=== PATIENT | female | born 1990 ===

== ENCOUNTER 2017-05-08 19:31 | Emergency (ER) | payer MEDICAID, OTHER ==
--- NOTE | 2017-05-08 20:30 | UC ---
Respiratory Complaint HPI - HPI Summary HPI Summary: 26 yo WF c/o nasal congestion, sorethroat and cough x 4 days, scant amount of sputum w/o pleurisy - History of Current Complaint Chief Complaint: UCGeneralIllness Stated Complaint: SORE THROAT/CHEST AND NASAL CONGESITON Time Seen by Provider: 05/08/17 19:55 Hx Obtained From: Patient Hx Last Menstrual Period: 04/08/17 ?: No Pain Intensity: 5 Character: Cough: Nonproductive - Allergies/Home Medications Allergies/Adverse Reactions: Allergies Allergy/AdvReac Type Severity Reaction Status Date / Time No Known Allergies Allergy Verified 05/08/17 19:48 Home Medications: Home Medications Eucalyptus/Menthol [Pina Cough Drops] 1 laxmi MT DAILY PRN 05/08/17 [History Confirmed 05/08/17] Fluticasone NASAL SPRAY 50MCG* [Flonase NASAL SPRAY 50MCG*] 1 spray BOTH NARES BID PRN 05/08/17 [History Confirmed 05/08/17] Ibuprofen TAB* [Advil TAB*] 600 mg PO Q6H PRN 05/08/17 [History Confirmed ] Melatonin 10 mg PO BEDTIME PRN 05/08/17 [History Confirmed 05/08/17] Pseudoephedrine HCL ER TAB* [Sudafed 12 Hour*] 120 mg PO DAILY PRN 05/08/17 [ History Confirmed 05/08/17] guaiFENesin ER TAB [Mucinex*] 1,200 mg PO DAILY PRN 05/08/17 [History Confirmed 05/08/17] PMH/Surg Hx/FS Hx/Imm Hx Previously Healthy: Yes - Surgical History Surgical History: None - Social History Alcohol Use: Occasionally Substance Use Type: None Smoking Status (MU): Never Smoked Tobacco Review of Systems Constitutional: Negative Skin: Negative Eyes: Negative ENT: Nasal Discharge, Sinus Congestion Respiratory: Negative Cardiovascular: Negative Gastrointestinal: Negative Genitourinary: Negative Motor: Negative Neurovascular: Negative Musculoskeletal: Negative Neurological: Negative Psychological: Negative All Other Systems Reviewed And Are Negative: Yes Physical Exam Triage Information Reviewed: Yes Vital Signs: Initial Vital Signs Temp 36.9 C 05/08/17 19:53 Pulse 70 05/08/17 19:53 Resp 16 05/08/17 19:53 BP 138/78 05/08/17 19:53 Pulse Ox 99 05/08/17 19:53 Eye Exam: Normal ENT Exam: Normal ENT: Positive: Pharyngeal erythema, Nasal congestion, Nasal drainage, TMs normal Dental Exam: Normal Neck exam: Normal Neck: Positive: 1 Respiratory Exam: Normal Cardiovascular Exam: Normal Abdominal Exam: Normal Musculoskeletal Exam: Normal Neurological Exam: Normal Psychological Exam: Normal Skin Exam: Normal UC Diagnostic Evaluation - Laboratory O2 Sat by Pulse Oximetry: 99 Respiratory Course/Dx - Course Course Of Treatment: rapid strep negative - Differential Dx/Diagnosis Provider Diagnoses: URI Discharge - Discharge Plan Condition: Stable Disposition: HOME Patient Education Materials: Upper Respiratory Infection (ED), Diphenhydramine (By mouth) Referrals: Emmanuel Schreiber MD [Primary Care Provider] - Additional Instructions: take Benadryl 2 tabs by mouth for severe nasal congestion Continue with Mucinex DM 2x/ day for cough If increase in amount or color of sputum increases or changes then return to clinic for re-evaluation
== END 2017-05-08 20:43 | disposition home or self-care (01) ==
LOC: UCCORT 19:31
DX: J06.9 Acute upper respiratory infection, unspecified (principal)
CPT/HCPCS: 87651; 99201; G0463

== ENCOUNTER 2018-11-25 20:15 | Emergency (ER) | payer OTHER ==
[2018-11-25 20:37] VITALS: BP 138/84
--- NOTE | 2018-11-25 20:41 | UC ---
Ear Complaint HPI - HPI Summary HPI Summary: Left ear ache started this am. Pain comes and goes with some burning sensation. Sick a week and a half ago. Taking mucinex, sudafed. - History of Current Complaint Chief Complaint: UCEar Stated Complaint: EAR PAIN Time Seen by Provider: 11/25/18 20:30 Hx Obtained From: Patient Hx Last Menstrual Period: 04/08/17 ?: No Onset/Duration: Sudden Onset, Lasting Days Severity Initially: Moderate Severity Currently: Moderate Pain Intensity: 4 Associated Signs/Symptoms: Positive: URI Symptoms - Allergies/Home Medications Allergies/Adverse Reactions: Allergies Allergy/AdvReac Type Severity Reaction Status Date / Time No Known Allergies Allergy Verified 11/25/18 20:37 Home Medications: Home Medications Naproxen [Naproxen 375 mg tab] 375 mg PO DAILY PRN 11/25/18 [History Confirmed 11/25/18] Norgestimate-Ethinyl Estradiol [Sprintec 28 0.25-35 mg-Mcg] 1 tab PO 11/25/18 [ History] PMH/Surg Hx/FS Hx/Imm Hx Previously Healthy: Yes - Surgical History Surgical History: None - Family History Known Family History: Positive: Hypertension - Social History Alcohol Use: Occasionally Substance Use Type: None Smoking Status (MU): Never Smoked Tobacco Review of Systems All Other Systems Reviewed And Are Negative: Yes ENT: Positive: Ear Ache, Sinus Congestion Is Patient Immunocompromised?: No Physical Exam Triage Information Reviewed: Yes Appearance: Well-Appearing, Well-Nourished, Pain Distress Vital Signs: Initial Vital Signs Temp 98.3 F 11/25/18 20:29 Pulse 84 11/25/18 20:29 Resp 18 11/25/18 20:29 BP 138/84 11/25/18 20:29 Pulse Ox 98 11/25/18 20:29 Vital Signs Reviewed: Yes Eye Exam: Normal ENT: Positive: Nasal congestion, TM bulging - bilateral Dental Exam: Normal Neck exam: Normal Respiratory Exam: Normal Cardiovascular Exam: Normal Abdominal Exam: Normal Musculoskeletal Exam: Normal Neurological Exam: Normal Psychological Exam: Normal Skin Exam: Normal Ear Complaint Course/Dx - Course Course Of Treatment: hx obtained, exam performed ,meds reviewed, treated for serous otitis of the left ear - Differential Dx/Diagnosis Differential Diagnosis/HQI/PQRI: Otitis Media, URI Provider Diagnosis: Left serous otitis media Discharge ED - Sign-Out/Discharge Documenting (check all that apply): Patient Departure All imaging exams completed and their final reports reviewed: No Studies - Discharge Plan Condition: Stable Disposition: HOME Prescriptions: Fluticasone NASAL SPRAY 50MCG* [Flonase NASAL SPRAY 50MCG*] 2 spray BOTH NARES DAILY #1 btl predniSONE [Prednisone 20 MG TAB] 40 mg PO DAILY #10 tablet Patient Education Materials: Serous Otitis Media (ED) Referrals: Emmanuel Schreiber MD [Primary Care Provider] - Additional Instructions: 1. use the prednisone to reduce the inflammation 2. Increase fluids 3. Use the flonase for the next 2 weeks 4. ibuprofen for pain. - Billing Disposition and Condition Condition: STABLE Disposition: Home
== END 2018-11-25 20:47 | disposition home or self-care (01) ==
LOC: UCCORT 20:15
DX: H65.92 Unspecified nonsuppurative otitis media, left ear (principal)
CPT/HCPCS: 99212; G0463

== ENCOUNTER 2018-11-29 08:37 | Emergency (ER) | payer OTHER ==
[2018-11-29 09:01] VITALS: BP 144/86
--- NOTE | 2018-11-29 09:58 | UC ---
Skin Complaint HPI - HPI Summary HPI Summary: cold sore right lower lip x 1 day + pain and swelling of the right lower lip tender to touch , redness his of cold sores no fever, no chills has been on antibiotics and prednisone - History of Current Complaint Chief Complaint: UCSkin Time Seen by Provider: 11/29/18 09:25 Stated Complaint: SKIN COMPLAINT Hx Obtained From: Patient Hx Last Menstrual Period: 11/10/18 ?: No Onset/Duration: Sudden Onset, Lasting Days - 1, Still Present Timing: Constant Onset Severity: Moderate Current Severity: Moderate Pain Intensity: 0 Pain Scale Used: 0-10 Numeric Location: Discrete - right lower lip Character: Swelling, Pain, Redness, Raised, Painful Aggravating Factor(s): Nothing Alleviating Factor(s): Nothing Associated Signs & Symptoms: Positive: Negative - Allergy/Home Medications Allergies/Adverse Reactions: Allergies Allergy/AdvReac Type Severity Reaction Status Date / Time No Known Allergies Allergy Verified 11/29/18 08:55 PMH/Surg Hx/FS Hx/Imm Hx Previously Healthy: Yes - Surgical History Surgical History: None - Family History Known Family History: Positive: Hypertension - Social History Alcohol Use: Occasionally Substance Use Type: None Smoking Status (MU): Never Smoked Tobacco Review of Systems All Other Systems Reviewed And Are Negative: Yes Constitutional: Positive: Negative Eyes: Positive: Negative ENT: Positive: Negative Respiratory: Positive: Negative Is Patient Immunocompromised?: No Physical Exam Triage Information Reviewed: Yes Appearance: Well-Appearing, No Pain Distress, Well-Nourished Vital Signs: Initial Vital Signs Temp 98 F 11/29/18 08:57 Pulse 71 11/29/18 08:57 Resp 17 11/29/18 08:57 BP 144/86 11/29/18 08:57 Pulse Ox 98 11/29/18 08:57 Vital Signs Reviewed: Yes Eye Exam: Normal Eyes: Positive: Conjunctiva Clear ENT: Positive: Normal ENT inspection, Hearing grossly normal, Pharynx normal, Other - cold sore right lower lip , + erthema, swelling, tender to touch Neck: Positive: Supple, Nontender, No Lymphadenopathy Respiratory: Positive: Chest non-tender, Lungs clear, Normal breath sounds Cardiovascular: Positive: RRR, No Murmur, Pulses Normal Skin Exam: Normal Course/Dx - Diagnoses Provider Diagnosis: Cold sore Discharge ED - Sign-Out/Discharge Documenting (check all that apply): Patient Departure All imaging exams completed and their final reports reviewed: No Studies - Discharge Plan Condition: Stable Disposition: HOME Prescriptions: ValACYclovir (*) [Valtrex 500 mg (*)] 500 mg PO BID #6 tab Patient Education Materials: Oral Herpes Simplex Virus Infections (ED) Referrals: Emmanuel Schreiber MD [Primary Care Provider] - If Needed - Billing Disposition and Condition Condition: STABLE Disposition: Home
== END 2018-11-29 09:35 | disposition home or self-care (01) ==
LOC: UCCORT 08:37
DX: B00.1 Herpesviral vesicular dermatitis (principal)
CPT/HCPCS: 99212; G0463